=== PATIENT | female | born 1985 | race African-American/Black ===

== ENCOUNTER 2017-08-08 03:56 | Emergency (ER) | payer MEDICAID ==
[~2017-08-08] VITALS: Ht 165.1 cm; Wt 64.0 kg
[2017-08-08] MEDS ORDERED: HYDROcodone/APAP 5/325 TABLET ONE ×2 (04:29→04:37)
[2017-08-08] MEDS ORDERED: HYDROcodone/APAP 5/325 TABLET PO ONE (04:30)
[2017-08-08] MEDS ORDERED: PLEASE ENTER ALLERGIES MC SCH ×2 (04:30)
[2017-08-08 05:29] VITALS: BP 156/92
== END 2017-08-08 05:29 | disposition home or self-care (01) ==
LOC: ED 05:25
DX: S80.01XA Contusion of right knee, initial encounter (principal); F43.10 Post-traumatic stress disorder, unspecified; W01.0XXA Fall on same level from slipping, tripping and stumbling without subsequent striking against object, initial encounter; Y93.89 Activity, other specified; Y92.89 Other specified places as the place of occurrence of the external cause; Y99.8 Other external cause status
CPT/HCPCS: 99284